=== PATIENT | female | born 1950 | race Caucasian/White ===

== ENCOUNTER 2018-04-17 14:39 | Emergency (ER) | payer MEDICARE, OTHER ==
[2018-04-17] MEDS ORDERED: NORMAL SALINE 1000 ML 1,000 ML IV ONE (14:58)
[2018-04-17] MEDS ORDERED: ONDANSETRON HCL INJ/PF 4 MG/2 ML SDV IV ONE (14:59)
--- NOTE | 2018-04-17 15:00 | ER Document Report ---
ED Medical Screen (RME) - General Chief Complaint: Headache >24 hrs old Stated Complaint: HEADACHE Time Seen by Provider: 04/17/18 14:55 Notes: Patient is a 67-year-old female with history of CVA that presents to the emergency department for chief complaint of headache, nausea, vomiting and confusion. Headache apparently started Thursday, but confusion has been progressively worse over the course of the week according to the patient's javid ghter. She has a history of CVA, that was at the "base of the brain". ROS: Other than noted above, the 12 point review of systems was reviewed with the patient and were negative, all pertinent findings are included in the HPI. PHYSICAL EXAMINATION: Vital signs reviewed. GENERAL: Elderly female, appears uncomfortable, tachypneic HEAD: Atraumatic, normocephalic. EYES: Pupils equal round extraocular movements intact, conjunctiva are normal. ENT: Nares patent NECK: Normal range of motion CV: Tachycardic, regular rhythm LUNGS: Tachypnea, lungs are clear Musculoskeletal: Normal range of motion NEUROLOGICAL: Normal speech PSYCH: Patient appears anxious MDM: Patient seen and examined for rapid initial assessment. Vital signs reviewed. A comprehensive ED assessment and evaluation of the patient, analysis of test results and completion of the medical decision making process will be conducted by additional ED providers. *Note is created using voice recognition software and may contain spelling, syntax or grammatical errors. TRAVEL OUTSIDE OF THE [place] 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 Denies: Hx Seizures Renal/ Medical History: Denies: Hx End Stage Renal Disease, Hx Kidney Stones, Hx Peritoneal Dialysis Musculoskeltal Medical History: Reports Hx Arthritis, Denies Hx Fibromyalgia, Denies Hx Multiple Sclerosis, Denies Hx Muscular Dystrophy Psychiatric Medical History: Denies: Hx Dementia Traumatic Medical History: Reports: Hx Fractures - broken right arm prev Past Surgical History: Denies: Hx Pacemaker - Immunizations Hx Diphtheria, Pertussis, Tetanus Vaccination: - unknown Physical Exam - Vital signs Vitals: Temp Pulse Resp BP Pulse Ox 97.6 F 114 H 28 H 175/104 H 97 04/17/18 14:49 04/17/18 14:49 04/17/18 14:49 04/17/18 14:49 04/17/18 14:49 Course - Vital Signs Vital signs: Temp Pulse Resp BP Pulse Ox 97.6 F 114 H 28 H 175/104 H 97 04/17/18 14:49 04/17/18 14:49 04/17/18 14:49 04/17/18 14:49 04/17/18 14:49
--- NOTE | 2018-04-17 15:15 | RADIOLOGY REPORT (SQ) ---
EXAM DESCRIPTION: CHEST SINGLE VIEW COMPLETED DATE/TIME: 04/17/2018 3:06 pm REASON FOR STUDY: tachycardia, shortness of breath COMPARISON: None. EXAM PARAMETERS: NUMBER OF VIEWS: One view. TECHNIQUE: Single frontal radiographic view of the chest acquired. RADIATION DOSE: NA LIMITATIONS: None. FINDINGS: LUNGS AND PLEURA: No opacities, masses or pneumothorax. No pleural effusion. MEDIASTINUM AND HILAR STRUCTURES: No masses. Contour normal. HEART AND VASCULAR STRUCTURES: Heart normal in size. Normal vasculature. BONES: No acute findings. HARDWARE: None in the chest. OTHER: No other significant finding. IMPRESSION: NO ACUTE RADIOGRAPHIC FINDING IN THE CHEST. TECHNICAL DOCUMENTATION: JOB ID: [id number] [employer]- All Rights Reserved Reading location - IP/workstation name: [email or web address]
[2018-04-17] MEDS ORDERED: ONDANSETRON 4 MG TAB.RAPDIS ONE (15:31)
--- NOTE | 2018-04-17 15:39 | RADIOLOGY REPORT (SQ) ---
EXAM DESCRIPTION: CT HEAD WITHOUT COMPLETED DATE/TIME: 04/17/2018 3:29 pm REASON FOR STUDY: worst headache hx strokes COMPARISON: None. TECHNIQUE: Axial images acquired through the brain without intravenous contrast. Images reviewed wi th bone, brain and subdural windows. Images stored on PACS. All CT scanners at this facility use dose modulation, iterative reconstruction, and/or weight based d osing when appropriate to reduce radiation dose to as low as reasonably achievable (ALARA). [facility]: Dose Right [facility]: CareDose [facility]: Dose Right [facility]: Teradose 4D [facility]: Smart [place] Stem Cell RADIATION DOSE: CT Rad equipment meets quality standard of care and radiation dose reduction techniq ues were employed. CTDIvol: 53.2 mGy. DLP: 1017 mGy-cm. mGy. LIMITATIONS: None. FINDINGS: VENTRICLES: Prominent. CEREBRUM: No masses. No hemorrhage. No midline shift. Areas of low density in the white matter mos t likely due to chronic micro-vascular ischemic change. No evidence for acute infarction. CEREBELLUM: No masses. No hemorrhage. No alteration of density. No evidence for acute infarction. EXTRAAXIAL SPACES: Mild age-related involutional change. No fluid collections. No masses. ORBITS AND GLOBE: No intra- or extraconal masses. Normal contour of globe without masses. CALVARIUM: No fracture. PARANASAL SINUSES: No fluid or mucosal thickening. SOFT TISSUES: No mass or hematoma. OTHER: No other significant finding. IMPRESSION: MILD CHRONIC CHANGES OF ATROPHY AND MICROVASCULAR ISCHEMIA. NO ACUTE PROCESS. EVIDENCE OF ACUTE STROKE: NO. TECHNICAL DOCUMENTATION: JOB ID: [id number] Quality ID # [id number]: Final reports with documentation of one or more dose reduction techniques (e.g., Au tomated exposure control, adjustment of the mA and/or kV according to patient size, use of iterative reconstruction technique) 2010 [employer]- All Rights Reserved Reading location - IP/workstation name: [email or web address]
--- NOTE | 2018-04-17 15:40 | ER Document Report ---
ED General - General Chief Complaint: Headache >24 hrs old Stated Complaint: HEADACHE Time Seen by Provider: 04/17/18 14:55 Mode of Arrival: Ambulatory Information source: Patient Notes: 67-year-old female with a history of CVA presents emergency department with complaints of nausea, vomiting, diarrhea, forgetfulness, headache that is been present since Thursday. Patient's family is at bedside. They state that the patient has been getting progressively worse. They state that her symptoms are similar to her previous stroke that occurred 6 years ago. They state at that time the patient had slurred speech, confusion, left-sided facial droop. Her symptoms completely resolved. She has been on a baby aspirin daily. Today she has intermittent confusion per family. They state that she's forgetful. No history of sick contacts. Headache is a dull aching sensation in the posterior occiput. No radiation. No alleviating or exacerbating factors. Gradually worsening. No abrupt onset. No neck pain. Patient denies any fever, chills, chest pain, shortness of breath, abdominal pain, dysuria, increased urgency, increased frequency, vision changes, speech changes, numbness, tingling, weak ness. TRAVEL OUTSIDE OF THE [place] IN LAST 30 DAYS: No - HPI Onset: Other - 3 days ago Onset/Duration: Gradual Quality of pain: No pain, Dull Severity: Moderate Associated symptoms: Chills, Diarrhea, Headache, Nausea, Vomiting Exacerbated by: Denies Relieved by: Denies Similar symptoms previously: Yes Recently seen / treated by doctor: No - Related Data Allergies/Adverse Reactions: peanuts Allergy (Severe, Uncoded 04/17/18 14:40) Hives Past Medical History - General Information source: Patient - Social History Smoking Status: Former Smoker Chew tobacco use (# tins/day): No Frequency of alcohol use: None Drug Abuse: None Family History: None Patient has suicidal ideation: No Patient has homicidal ideation: No - Past Medical History Cardiac Medical History: Reports: Hx Coronary Artery Disease, 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 Denies: Hx Seizures Renal/ Medical History: Denies: Hx End Stage Renal Disease, Hx Kidney Stones, Hx Peritoneal Dialysis Musculoskeletal Medical History: Reports Hx Arthritis, Denies Hx Fibromyalgia, Denies Hx Multiple Sclerosis, Denies Hx Muscular Dystrophy Psychiatric Medical History: Denies: Hx Dementia Traumatic Medical History: Reports: Hx Fractures - broken right arm prev Past Surgical History: Denies: Hx Pacemaker - Immunizations Hx Diphtheria, Pertussis, Tetanus Vaccination: - unknown Review of Systems - Review of Systems Constitutional: Chills EENT: No symptoms reported Cardiovascular: No symptoms reported Respiratory: No symptoms reported Gastrointestinal: Diarrhea, Nausea, Vomiting Genitourinary: No symptoms reported Female Genitourinary: No symptoms reported Musculoskeletal: No symptoms reported Skin: No symptoms reported Hematologic/Lymphatic: No symptoms reported Neurological/Psychological: Confusion, Headaches -: Yes All other systems reviewed and negative Physical Exam - Vital signs Vitals: Temp Pulse Resp BP Pulse Ox 97.6 F 114 H 28 H 175/104 H 97 04/17/18 14:49 04/17/18 14:49 04/17/18 14:49 04/17/18 14:49 04/17/18 14:49 - Notes Notes: PHYSICAL EXAMINATION: GENERAL: Ill appearing. No acute distress. HEAD: Atraumatic, normocephalic. EYES: Pupils equal round and reactive to light, extraocular movements intact, conjunctiva are normal. ENT: Nares patent, oropharynx clear without exudates. Moist mucous membranes. NECK: Normal range of motion, supple without lymphadenopathy LUNGS: Breath sounds clear to auscultation bilaterally and equal. No wheezes rales or rhonchi. HEART: Regular rate and rhythm without murmurs ABDOMEN: Soft, nontender, nondistended abdomen. No guarding, no rebound. Normal active bowel sounds. Female : deferred Musculoskeletal: Normal range of motion, no pitting or edema. No cyanosis. NEUROLOGICAL: Cranial nerves grossly intact. Normal speech, normal finger to nose. Normal sensory, motor exams PSYCH: Normal mood, normal affect. SKIN: Warm, Dry, normal turgor, no rashes or lesions noted. Course - Re-evaluation Re-evalutation: 04/17/18 15:40 Patient refusing any blood to be drawn. Patient refusing IV. I told the pat ient she appears dehydrated from her Nausea, vomiting, diarrhea and we need the IV to give her fluids. Furthermore, we need to obtain the lab work to appropriately evaluate her. Family think they can talk her into allowing the nurse to obtain blood. 04/17/18 16:01 EKG: Ventricular rate 92, W[place] interval 168, QRS duration 100, QTc 461, sinus rhythm. No ST segment elevation. 04/17/18 17:31 We were able to talk the patient into letting us obtain IV access and draw blood. Unfortunately, not all labs were able to be obtained at that time. A lactic acid, VBG, and blood cultures were needed to be obtained. Patient refusing any additional IV sticks. Patient refusing to wear her blood pressure cuff as it was causing her discomfort. She was threatening to punch family members because of the pain the IV and blood pressure cuff were causing. I discussed with the patient that we need to obtain labs and monitor her vitals. I told her she will need to wear the blood pressure cuff. Patient wanting blood drawn from the IV. Refusing additional IV stick. Nurse unable to draw blood from IV line. Patient continues to refuse additional IV stick. Patient now refuses to provide a urine specimen. I discussed again with the patient that she needs to let us evaluate her and help her. She could have a urinary tract infection that needs to be treated. Patient continues to refuse care. Head CT does not show an acute process. Chest XR does not show an acute process. Labs thus far do not show acute process. Patient continues to be difficult and is refusing additional lab/urine testing, fluids, hypertensive medication, vital sign monitoring. Patient also refusing inpatient admission for her symptoms. As the patient will not allow us to evaluate and treat her, I told her that she'll need to leave against medical advice. I discussed leaving AMA and the risks associated with leaving against medical advice. Patient understands that she may or her condition may worsen by leaving against medical advice. She was told to return to the ED if she wants evaluation and treatment and to follow up with her primary care physician outpatient. 04/18/18 10:18 - Vital Signs Vital signs: Temp Pulse Resp BP Pulse Ox 97.6 F 114 H 18 188/98 H 98 04/17/18 14:49 04/17/18 14:49 04/17/18 16:27 04/17/18 16:27 04/17/18 16:27 - Laboratory Result Diagrams: 04/17/18 16:03 04/17/18 16:03 Laboratory results interpreted by me: 04/17/18 04/17/18 04/17/18 14:48 16:03 16:03 WBC 10.7 H BUN 42 H Est GFR (Non-Af Amer) 52 L Glucose 161 H POC Glucose 127 H AST 46 H Total Protein 8.6 H Discharge - Discharge Clinical Impression: Nausea & vomiting Qualifiers: Vomiting type: unspecified Vomiting Intractability: unspecified Qualified Code(s): R11.2 - Nausea with vomiting, unspecified Diarrhea Qualifiers: Diarrhea type: unspecified type Qualified Code(s): R19.7 - Diarrhea, unspecified Headache Qualifiers: Headache type: unspecified Headache chronicity pattern: unspecified pattern Intractability: intractable Qualified Code(s): R51 - Headache Disposition: AGAINST MEDICAL ADVICE
[2018-04-17 16:17] LABS: ABSOLUTE BASOPHILS # (AUTO) 0.1 10^3/uL (0.0-0.2); ABSOLUTE LYMPHOCYTES (AUTO) 1.6 10^3/uL (0.5-4.7); ABSOLUTE MONOCYTES (AUTO) 0.9 10^3/uL (0.1-1.4); ABSOLUTE NEUT (AUTO) 8.1 10^3/uL (1.7-8.2); BASOPHILS % (AUTO) 0.8 % (0-2); EOSINOPHILS % (AUTO) 0.2 % (0-6); HEMATOCRIT 39.9 % (36.0-47.0); HEMOGLOBIN 13.6 g/dL (12.0-15.5); LYMPHOCYTES % (AUTO) 15.2 % (13-45); MEAN CORPUSCULAR HEMOGLOBIN 29.2 pg (27.0-33.4); MEAN CORPUSCULAR HGB CONC 34.1 g/dL (32.0-36.0); MEAN CORPUSCULAR VOLUME 86 fl (80-97); MONOCYTES % (AUTO) 8.2 % (3-13); PLATELET COUNT 411 10^3/uL (150-450); RED BLOOD COUNT 4.67 10^6/uL (3.72-5.28); RED CELL DISTRIBUTION WIDTH 13.8 % (11.5-14.0); SEGMENTED NEUTROPHILS % (AUTO) 75.6 % (42-78); TOTAL CELLS COUNTED % (AUTO) 100 %; WHITE BLOOD COUNT 10.7 10^3/uL (4.0-10.5)
[2018-04-17 16:29] VITALS: BP 188/98
[2018-04-17 16:34] LABS: INTERNATIONAL RATION (INR) 1.07; PROTHROMBIN TIME 14.5 SEC (11.4-15.4)
[2018-04-17 16:36] LABS: ALANINE AMINOTRANSFERASE 15 U/L (9-52); ALBUMIN 4.2 g/dL (3.5-5.0); ALKALINE PHOSPHATASE 102 U/L (38-126); ANION GAP 13 (5-19); ASPARTATE AMINO TRANSFERASE 46 U/L (14-36); BILIRUBIN,DIRECT 0.4 mg/dL (0.0-0.4); BILIRUBIN,TOTAL 0.7 mg/dL (0.2-1.3); BLOOD UREA NITROGEN 42 mg/dL (7-20); CALCIUM 9.9 mg/dL (8.4-10.2); CARBON DIOXIDE 22 mmol/L (22-30); CHLORIDE 106 mmol/L (98-107); GLUCOSE 161 mg/dL (75-110); SODIUM 140.9 mmol/L (137-145); TOTAL PROTEIN 8.6 g/dL (6.3-8.2)
--- NOTE | 2018-04-17 20:31 | EKG REPORT ---
SEVERITY:- ABNORMAL ECG - SINUS RHYTHM PROBABLE LEFT ATRIAL ABNORMALITY LVH WITH SECONDARY REPOLARIZATION ABNORMALITY : Confirmed by: Jania Stock 17-Apr-2018 20:30:42
== END 2018-04-17 17:59 | disposition left against medical advice (07) ==
LOC: ER 14:39
DX: R51 Headache (principal); R11.2 Nausea with vomiting, unspecified; R19.7 Diarrhea, unspecified; R41.0 Disorientation, unspecified; Z87.891 Personal history of nicotine dependence; I25.10 Atherosclerotic heart disease of native coronary artery without angina pectoris; I10 Essential (primary) hypertension
CPT/HCPCS: 93005; 99284; 36415; 87040; 82962; 85025; 85610; 87077; 80053; 87186; 71045; 70450; 93010; A9270; J7030; S0119